=== PATIENT | male | born 1940 | race African-American/Black ===

== ENCOUNTER 2016-09-16 08:46 | Emergency (ER) | payer MEDICARE, OTHER ==
[2016-09-16 08:24] LABS: BILIRUBIN NEGATIVE (NEGATIVE); BLOOD 1+ Ery/uL (NEGATIVE); CLARITY CLEAR (CLEAR); COLOR STRAW (YELLOW); GLUCOSE (U) NORMAL (NORMAL); KETONE (U) NEGATIVE (NEGATIVE); LEUKOCYTES NEGATIVE Leu/uL (NEGATIVE); NITRITE NEGATIVE (NEGATIVE); PROTEIN NEGATIVE (NEGATIVE); SPECIFIC GRAVITY <=1.005 (1.001-1.030); UROBILINOGEN 0.2 mg/dL (0.2-1.0); pH 6.5 (5.0-9.0)
[2016-09-16 08:32] LABS: URINARY RBC RARE
[2016-09-16 08:33] LABS: SQUAMOUS EPITHELIAL CELLS RARE
== END 2016-09-16 09:37 | disposition home or self-care (01) ==
LOC: FER 08:46
PROVIDERS: Emergency Medicine
DX: S29.011A Strain of muscle and tendon of front wall of thorax, initial encounter (principal); R31.9 Hematuria, unspecified; I12.9 Hypertensive chronic kidney disease with stage 1 through stage 4 chronic kidney disease, or unspecified chronic kidney disease; N18.9 Chronic kidney disease, unspecified; K21.9 Gastro-esophageal reflux disease without esophagitis; E78.5 Hyperlipidemia, unspecified; Z87.891 Personal history of nicotine dependence; Z79.899 Other long term (current) drug therapy
CPT/HCPCS: 71020; 71100; 74000; 81001; 99283

== ENCOUNTER 2020-12-31 11:15 | Emergency (ER) | payer MEDICARE, OTHER ==
[~2020-12-31 11:15] MED LIST: ALLERGY PILL; CARTIA XT180 MG PO; CIPRO500 MG PO; CLARITIN10 MG PO; DILTIAZEM 24HR120 MG PO; DOK100 MG PO; DRISDOL50000 UNIT PO; FINASTERIDE5 MG PO; HCTZ25 MG PO; INDERAL20 MG PO; IRON PO; LASIX20 MG PO; LOPRESSOR25 MG PO; MACROBID100 MG PO; PROTONIX 40MG T40 MG PO; ZESTRIL5 MG PO
[2020-12-31 11:49] LABS: BASOPHIL 0.5 % (0-2); EOSINOPHIL 2.4 % (0-7); HCT 44.2 % (42.0-52.0); HGB 14.1 g/dl (13.2-18.0); LYMPHOCYTE 26.9 % (15-48); MCH 30.5 pg (25.0-31.0); MCHC 31.9 g/dL (32.0-36.0); MCV 95.7 fL (78.0-100.0); MONOCYTE 7.1 % (0-12); NEUTROPHIL 62.9 % (41-80); NRBC 0; PLT 195 K/uL (150-400); RBC 4.62 M/uL (4.70-6.00); RDW 12.3 % (11.5-14.0); WBC 5.8 K/uL (4.0-10.5)
[2020-12-31 11:53] LABS: INR 1.25 (0.9-1.2); PROTHROMBIN TIME 14.9 SECONDS (11.4-13.6); PTT 30.1 SECONDS (22.2-34.7)
[2020-12-31 12:21] LABS: CREATININE 1.47 mg/dL (0.67-1.17); POTASSIUM 3.8 mmol/L (3.5-5.1)
[2020-12-31 12:22] LABS: ALBUMIN 3.8 g/dL (3.4-5.0); BILIRUBIN - TOTAL 0.3 mg/dL (0.2-1.0)
[2020-12-31 12:24] LABS: GLOBULIN (CALCULATION) 3.5 g/dL; TOTAL PROTEIN 7.3 g/dL (6.4-8.2)
== END 2020-12-31 13:13 | disposition home or self-care (01) ==
LOC: FER 11:15
PROVIDERS: Emergency Medicine
DX: R07.89 Other chest pain (principal); I10 Essential (primary) hypertension
CPT/HCPCS: 36415; 71045; 80053; 84484; 85025; 85610; 85730; 93005; J1885